=== PATIENT | female | born 1995 ===

== ENCOUNTER 2017-02-21 17:13 | Emergency (ER) | payer BC ==
[~2017-02-21] VITALS: Ht 167.6 cm; Wt 72.6 kg
== END 2017-02-21 18:10 | disposition short-term general hospital (02) ==
LOC: ER 17:13
DX: S91.332A Puncture wound without foreign body, left foot, initial encounter (principal); Z23 Encounter for immunization; W22.8XXA Striking against or struck by other objects, initial encounter